=== PATIENT | male | born 1930 | race Hispanic/Latino ===

== ENCOUNTER → 2018-06-09 | Outpatient (CLI) | payer MEDICARE ==
[~2018-06-09] MED LIST: BUPIVACAINE HCL 0.5% INJ 30 ML VIAL INJ ONE; GADOBENATE DIMEGLUMINE 0 ML IV ONE
[2018-06-09 12:05] LABS: CREATININE, SERUM 1.29 mg/dL (0.72-1.25)
== END ==
LOC: MRI 11:22
PROVIDERS: ATTEND Specialist
DX: R22.31 Localized swelling, mass and lump, right upper limb (principal)
CPT/HCPCS: 36415; 82565; 84520